=== PATIENT | female | born 1950 | race Caucasian/White ===

== ENCOUNTER 2017-10-21 09:54 | Day surgery (SDC) | payer MEDICARE, MEDICAID ==
[~2017-10-21] VITALS: Ht 167.6 cm; Wt 129.1 kg
--- NOTE | ~2017-10-21 | OP ---
PATIENT NAME: OLGA ROBINS MEDICAL RECORD: [id number] :50 LOCATION:D[facility] ADMISSION DATE: SURGEON: JESSE BOSTON DO DATE OF OPERATION: 10/21/2017 PROCEDURE: Colonoscopy with polypectomy and random biopsies. INDICATION FOR PROCEDURE: Family history positive for cancer of the GI tract including her aunt, history of colon polyps, altered bowel function, hematochezia. Her last colonoscopy was on 08/19/2014. SCOPE: Olympus video pediatric colonoscope. MEDICATIONS: Propofol 650 mg IV per anesthesia. WITHDRAWAL TIME: 13 minutes. ESTIMATED BLOOD LOSS: Minimal. COMPLICATIONS: None. FINDINGS: Informed consent was given. The patient was made comfortable with the above medication. After reaching an adequate level of sedation by slow IV push, the patient was placed on her left side. A digital rectal examination was performed and was normal. The endoscope was then advanced under direct visualization through the rectum to the cecum with visualization of appendiceal orifice and ileocecal valve. The scope was slowly withdrawn and mucosa was carefully examined. The prep quality was good. There was a single polyp located in the ascending colon, which was benign appearing and sessile. It measured approximately 5 mm in diameter and was removed using a hot forceps in one piece and completely retrieved. There were 2 polyps located in the descending colon, which were benign appearing, sessile, and ranged in size from 4 mm to 7 mm. One of the polyps had some excessive bleeding after polypectomy with hot forceps and that was not stopping completely, so a single endoclip was placed for hemostasis successfully. Both of those polyps were removed with hot forceps. Retroflexion was performed in the rectum with visualization of grade I internal hemorrhoids without bleeding. The endoscope was then withdrawn from the patient. The patient tolerated the procedure well and there were no complications. IMPRESSION: 1. Three polyps as described above, removed using hot forceps. 2. Otherwise, normal colonoscopy. Random biopsies were obtained during the colonoscopy to submit for histology and to rule out microscopic colitis. PLAN AND RECOMMENDATIONS: 1. Discharge home when recovery parameters are met. 2. Followup biopsy specimen results. 3. Recall colonoscopy in 3-5 years. 4. Monitor for further bleeding. It is possible that the large polyp that was bleeding after removal might be the source of hematochezia and this has been endoclipped. If there is continued bleeding and it is felt to be hemorrhoidal, we can consider a surgical referral. 5. Followup biopsy specimen results and treat if indicated for microscopic colitis. OPERATIVE REPORT [id number] OLGA ROBINS ALAN TRANSINT:[id number] Voice Confirmation ID: [id number] DOCUMENT ID: [id number] JESSE BOSTON DO at 1524 CC: [id number] DICTATION DATE: 10/21/17 1310 STITCH RUBBER: 10/21/17 1411 [facility] 10/21/17 [id number] [place] [address]
[~2017-10-21 09:54] MED LIST: ALENDRONATE SOD70 MG PO; ATENOLOL25 MG; BACLOFEN10 MG PO; BENTYL 20 MG TA20 MG PO; CALCIUM 600+D T1 TA1 PO; CARAFATE1 G PO; CYCLOBENZAPRINE10 MG PO; CYMBALTA60 MG PO; DEXILANT60 MG PO; DICYCLOMINE PO; ELIQUIS2.5 MG PO; ELIQUIS5 MG PO; FERROUS SULFAT325 MG PO; FLEXERIL10 MG PO; HYDROCODON-ACE1 EAC7; IPRAT-ALBUT 0.5-3 ML UPD; K-TAB10 MEQ PO; LEVOTHROID150 MCG PO; LIPITOR20 MG; LIPITOR20 MG PO; NORCO 5/325 TAB1 TA1 PO; PERCOCET 10/3251 TA1 PO; PRISTIQ50 MG PO; REXULTI PO; REXULTI1 MG PO; TENORMIN25 MG PO; TOPAMAX100 MG PO; TRAZODONE HCL150 MG PO; ULTRAM50 MG PO; XANAX XR0.5 MG; XANAX0.25 MG; ZITHROMAX250 MG PO; ZOCOR10 MG PO
[2017-10-21 10:39] VITALS: BP 122/65; Ht 167.6 cm; Wt 129.1 kg
[2017-10-21 11:16] LABS: BASOPHILS 0.3 % (0-2); EOSINOPHILS 1.8 % (0-7); HEMATOCRIT 38.6 % (36.0-48.0); HEMOGLOBIN 12.5 g/dL (12-16); IMMATURE GRANULOCYTES 0.1 % (0-5); LYMPHOCYTES 25.5 % (15-50); MCH 29.6 pg (26.0-34.0); MCHC 32.4 g/dL (31.0-37.0); MCV 91.3 fL (80.0-100.0); MEAN PLATELET VOLUME 10.5 fL (7.4-10.4); MONOCYTES 5.5 % (2-11); NEUTROPHILS 66.8 % (40-80); PLATELET COUNT 226 10x3/uL (130-400); RBC 4.23 10x6/uL (4.00-5.40); RDW 13.2 % (11.5-14.5); WBC 7.8 10x3/uL (4.8-10.8)
[2017-10-21 11:22] LABS: ANION GAP 14.4 mmol/L (8-16); CALCIUM 8.3 mg/dL (8.5-10.1); CARBON DIOXIDE 23.7 mmol/L (21.0-32.0); CREATININE - SERUM 0.9 mg/dL (0.6-1.3); POTASSIUM - SERUM 4.1 mmol/L (3.5-5.1)
== END 2017-10-21 14:18 | disposition home or self-care (01) ==
LOC: D.OPS 09:54
PROVIDERS: Anesthesiology
DX: D12.2 Benign neoplasm of ascending colon (principal); D12.4 Benign neoplasm of descending colon; K92.1 Melena; I10 Essential (primary) hypertension; E03.9 Hypothyroidism, unspecified; G47.30 Sleep apnea, unspecified; K44.9 Diaphragmatic hernia without obstruction or gangrene; K21.9 Gastro-esophageal reflux disease without esophagitis; Z01.812 Encounter for preprocedural laboratory examination

== ENCOUNTER → 2017-12-04 11:42 | Outpatient (CLI) | payer MEDICARE, MEDICAID ==
[2017-10-21 10:39] VITALS: BMI 45.9
== END | disposition home or self-care (01) ==
LOC: D.MAMMO 09:00
DX: Z12.31 Encounter for screening mammogram for malignant neoplasm of breast (principal)

== ENCOUNTER → 2018-01-29 12:50 | Outpatient (CLI) | payer MEDICARE, MEDICAID ==
[2017-10-21 10:39] VITALS: BMI 45.9
[~2018-01-29 12:50] MED LIST changes: +DESERYL100 MG PO; -HYDROCODON-ACE1 EAC7; +HYDROCODON-ACE1 EAC7 PO; +HYDROCODONE-APA1 TAB PO; -TRAZODONE HCL150 MG PO; +VITAMIN B-1000 MCG/M IM; +VITAMIN D31000 UNIT PO; -XANAX0.25 MG; +XANAX1 MG PO
== END | disposition home or self-care (01) ==
LOC: D.LABREF 12:50
DX: M19.90 Unspecified osteoarthritis, unspecified site (principal); Z11.8 Encounter for screening for other infectious and parasitic diseases

== ENCOUNTER 2018-02-19 10:00 | Inpatient (IN) | payer MEDICARE, MEDICAID ==
[~2018-02-19] VITALS: Ht 167.6 cm; Wt 126.6 kg
--- NOTE | ~2018-02-19 | OP ---
PATIENT NAME: OLGA ROBINS MEDICAL RECORD: [id number] :50 LOCATION:[id number] ADMISSION DATE:02/24/18 SURGEON: JULIENNE ENAMORADO MD DATE OF OPERATION: 02/24/2018 PREOPERATIVE DIAGNOSIS: Degenerative arthritis, left knee. POSTOPERATIVE DIAGNOSIS: Degenerative arthritis, left knee. PROCEDURE: Left total knee arthroplasty. SURGEON: Julienne Enamorado MD ANESTHESIA: General. INTRAOPERATIVE COMPLICATIONS: None. SUMMARY OF PATHOLOGIC FINDINGS: The patient had extensive tricompartmental osteoarthritis consistent with preoperative diagnosis. IMPLANTS USED: Hay Triathlon total knee arthroplasty - press-fit, size 4 distal femur, size 4 tibial baseplate, size 9 polyethylene insert, size 31 x 9 press-fit patella. OPERATIVE SUMMARY IN DETAIL: After obtaining the appropriate preoperative orthopedic surgery consent as well as anesthetic consultation, evaluation and clearance, the patient was brought to the operating room and placed on the operating table in supine position. After general laryngeal mask administered, tourniquet was placed in the proximal aspect of left lower extremity. Left lower extremity was then prepped and draped in routine sterile fashion. The leg was elevated and exsanguinated, tourniquet was inflated to 350 mmHg. Routine midline incision was taken down for paramedian arthrotomy. Patella was everted, distal femur was exposed. Soft tissue excision was done in the usual fashion. Distal intramedullary guide hole was created for distal intramedullary guided cut. Distal femoral cuts were made. This was followed by complete exposure of the proximal tibia. Intramedullary guide hole was again created. Proximal tibia was cut. Measurements were taken. Final chamfer cuts were made on the distal femur. Trials corresponding to the above final components were put into place, taken through range of motion and found to be stable in all planes. Final distal femoral and proximal tibial preparation was then followed by excision of the arthritic surface of the patella. Final patellar preparations made. At this point, the knee was irrigated in pulsatile lavage fashion. Final components were put into place with excellent fit and position. Slight patellar tracking laterally was noted. A lateral release was performed. This was followed by closure of the paramedian arthrotomy with #2 Ethibond, #1 Vicryl, 2-0 Vicryl, and skin nicho. Sterile dressings were applied. The patient was awakened and taken to recovery room in stable condition. All final needle and sponge counts were correct. OPERATIVE REPORT [id number] OLGA ROBINS TRANSINT:[id number] Voice Confirmation ID: [id number] DOCUMENT ID: [id number] FEI PEREZ, JULIENNE JOSE at 1916 CC: [id number] DICTATION DATE: 02/24/18820 INSURANCE SALES ASSISTANT: 02/24/18 1114 ADM IN [facility] [address] [place] [address]
[~2018-02-19 10:00] MED LIST changes: -HYDROCODONE-APA1 TAB PO; -VITAMIN B-1000 MCG/M IM; -VITAMIN D31000 UNIT PO
[2018-02-19] MEDS ORDERED: VITAMIN D31000 UNIT PO (10:51)
[2018-02-19] MEDS ORDERED: VITAMIN B-1000 MCG/M IM (10:52)
[2018-02-19 11:41] LABS: BASOPHILS 0.2 % (0-2); EOSINOPHILS 2.5 % (0-7); HEMATOCRIT 39.3 % (36.0-48.0); HEMOGLOBIN 12.8 g/dL (12-16); IMMATURE GRANULOCYTES 0.2 % (0-5); LYMPHOCYTES 30.2 % (15-50); MCH 29.8 pg (26.0-34.0); MCHC 32.6 g/dL (31.0-37.0); MCV 91.6 fL (80.0-100.0); MEAN PLATELET VOLUME 9.9 fL (7.4-10.4); MONOCYTES 7.6 % (2-11); NEUTROPHILS 59.3 % (40-80); PLATELET COUNT 246 10x3/uL (130-400); RBC 4.29 10x6/uL (4.00-5.40); RDW 13.4 % (11.5-14.5); WBC 8.3 10x3/uL (4.8-10.8)
[2018-02-19 12:11] LABS: ANION GAP 12.4 mmol/L (8-16); CALCIUM 8.2 mg/dL (8.5-10.1); CARBON DIOXIDE 26.6 mmol/L (21.0-32.0); CREATININE - SERUM 1.2 mg/dL (0.6-1.3)
[2018-02-19 12:41] LABS: APPEARANCE CLEAR (CLEAR); BILIRUBIN NEGATIVE (NEGATIVE); COLOR YELLOW (YELLOW); GLUCOSE NEGATIVE (NEGATIVE); KETONE NEGATIVE (NEGATIVE); NITRITE NEGATIVE (NEGATIVE); PROTEIN NEGATIVE (NEGATIVE); SPECIFIC GRAVITY 1.015 (1.005-1.020); UROBILINOGEN NORMAL (NORMAL)
[2018-02-19 12:57] LABS: INR 1.04 (0.85-1.17); PROTIME 13.2 SECONDS (11.6-15.0)
[2018-02-24] VITALS (14 sets, daily range): BP systolic 91–121; BP diastolic 55–70; Ht 167.6 cm; Wt 126.6 kg
[2018-02-25 02:59] VITALS: BP 122/68
[2018-02-25 05:16] LABS: HEMATOCRIT 36.8 % (36.0-48.0); MCH 29.5 pg (26.0-34.0); MCHC 32.6 g/dL (31.0-37.0); MCV 90.4 fL (80.0-100.0); MEAN PLATELET VOLUME 11.3 fL (7.4-10.4); RBC 4.07 10x6/uL (4.00-5.40); RDW 13.2 % (11.5-14.5); WBC 11.7 10x3/uL (4.8-10.8)
[2018-02-25 08:38] VITALS: BP 129/63
[2018-02-25 11:54] VITALS: BP 120/66
[2018-02-25 17:38] VITALS: BP 141/66
[2018-02-25 20:00] VITALS: BP 134/59
[2018-02-26] VITALS: BP 141/58
[2018-02-26 04:00] VITALS: BP 141/66
[2018-02-26 05:21] LABS: HEMATOCRIT 34.1 % (36.0-48.0); HEMOGLOBIN 11.3 g/dL (12-16); MCH 29.7 pg (26.0-34.0); MCHC 33.1 g/dL (31.0-37.0); MCV 89.7 fL (80.0-100.0); MEAN PLATELET VOLUME 10.5 fL (7.4-10.4); RBC 3.8 10x6/uL (4.00-5.40); RDW 13.3 % (11.5-14.5); WBC 10.7 10x3/uL (4.8-10.8)
[2018-02-26 09:33] VITALS: BP 141/70
[2018-02-26 11:30] VITALS: BP 121/70
[2018-02-26 20:00] VITALS: BP 136/60
[2018-02-27 04:00] VITALS: BP 123/60
[2018-02-27] MEDS ORDERED: HYDROCODONE-APA1 TAB PO (08:12)
[2018-02-27] MEDS ORDERED: ELIQUIS2.5 MG PO (08:12)
[2018-02-27 08:48] VITALS: BP 131/67
== END 2018-02-27 11:45 | DRG 470 ==
LOC: D.SDCHOLD 10:00 → D.MS 02-24 05:10 → D.SDCHOLD 02-24 07:30 → D.MS 02-24 09:22 → D.SDCHOLD 02-24 10:00 → D.MS 02-27 11:45
PROVIDERS: Orthopaedic Surgery
PROC: 0SRD0JA Replacement of Left Knee Joint with Synthetic Substitute, Uncemented, Open Approach (ICD-10-PCS; principal; 2018-02-24 07:30)
DX: M17.12 Unilateral primary osteoarthritis, left knee (principal); Z68.42 Body mass index [BMI] 45.0-49.9, adult; G51.0 Bell's palsy; G62.9 Polyneuropathy, unspecified; E66.01 Morbid (severe) obesity due to excess calories

== ENCOUNTER → 2018-11-03 08:40 | Outpatient (CLI) | payer MEDICARE, MEDICAID ==
[2018-02-24 12:18] VITALS: BMI 45.0
[~2018-11-03 08:40] MED LIST changes: +HYDROCODONE-APA1 TAB PO; +VITAMIN B-1000 MCG/M IM; +VITAMIN D31000 UNIT PO
== END | disposition home or self-care (01) ==
LOC: D.HCCARDIO 08:40
PROVIDERS: ATTEND Internal Medicine Cardiovascular Disease
DX: I20.9 Angina pectoris, unspecified (principal)

== ENCOUNTER → 2018-11-04 08:13 | Outpatient (CLI) | payer MEDICARE, MEDICAID ==
[2018-02-24 12:18] VITALS: BMI 45.0
== END | disposition home or self-care (01) ==
LOC: D.HCCARDIO 08:13
PROVIDERS: ATTEND Internal Medicine Cardiovascular Disease
DX: I20.9 Angina pectoris, unspecified (principal); E66.9 Obesity, unspecified

== ENCOUNTER 2018-11-14 06:56 | Outpatient (CLI) | payer MEDICARE, MEDICAID ==
[~2018-11-14] VITALS: Ht 167.6 cm; Wt 122.7 kg
--- NOTE | ~2018-11-14 | HEMODYNAMI ---
PATIENT:OLGA ROBINS MEDICAL RECORD: [id number] : 50 LOCATION:[facility] ADMISSION DATE: 11/14/18 Generatedon:11/14/201810:21 Patient name: OLGA ROBINS Patient #: [id number] SSN: DO B: 1950 Date of study: 11/14/2018 Page: Of Hemodynamic Procedure Report Patient Data Patient Demographics Procedure consent was obtained First Name: OLGA Gender: Female Last Name: JULIENNE : 1950 [facility] Initial: ALAN Age: 68 year(s) Patient #: [id number] Race: Unknown Additional ID: [id number] Contact details [address]: [address] [place] [address] State: [place] City: [place] Zip code: [address] Past Medical History Allergies Allergen Reaction Date Comments Reported Other allergy 11/14/2018 ASA, NSAIDS, PCN, SULFA, SPEARMINT Admission Admission Data Admission Date: 11/14/2018 Admission Time: 6:56 Height (in.): 66 BSA: 2.27 (m2) Height (cm.): 167.64 BMI: 43.58 (kg/m2) Weight (lbs.): 270 Weight (kg.): 122.47 Lab Results Lab Result Date: 11/14/2018 Lab Result Time: 0:00 Biochemistry Name Units Result Min Max BUN mg/dl 16 --(---*)-- 7 18 Creatinine mg/dl 1 --(--*-)-- 0.6 1.3 CBC Name Units Result Min Max Hematocrit % 40.4 -*(----)-- 42 54 Hemoglobin g/dl 13.2 -*(----)-- 13.5 17.5 Procedure Procedure Types Cath Procedure Diagnostic Procedure C [facility] w/Coronaries Sedation Charges Moderate Sedation up to 15 minutes PCI Procedure Coronary Stent Coronary Stent Initial Procedure Description Procedure Date Procedure Date: 11/14/2018 Procedure Start Time: 9:43 Procedure End Time: 10:14 Procedure Staff Name Function Eveline Zambrano RT Scrmaddy Osorio RN Nurse Pamela Ray RT Monitor Villa Watson MD Performing Physician Procedure Data Cath Procedure Fluoroscopy Diagnostic fluoroscopy Total fluoroscopy Time: 5.8 time: 5.8 min min Diagnostic fluoroscopy Total fluoroscopy dose: dose: 1437 mGy 1437 mGy Contrast Material Contrast Material Type Amount (ml) Isovue 300 104 Entry Location Entry Primary Successful Side Size Upsize Upsize Entry Closure Succes sful Closure Location (Fr) 1 (Fr) 2 (Fr) Remarks Device Remarks Femoral Right 5 Fr 6 Fr Exoseal artery Short Estimated blood loss: 5 ml Diagnostic catheters Device Type Used For End Catheter Placement MULTIPACK JL 4.0 5Fr Left Coronary catheter Angiography MULTIPACK 3DRC 5Fr Right Coronary catheter Angiography MULTIPACK Pigtail 5 Fr LV Angiography catheter Procedure Complications No complications Procedure Medications Medication Administration Route Dosage Oxygen etCO2 Nasal cannula 2 l/min Heparin Flush Bag added to field 2 bags (1000units/500ml NS) Lidocaine 2% added to field 20 Fentanyl I.V. 50 mcg Versed I.V. 1 mg 0.9% NaCl I.V. 100 ml/hr Fentanyl I.V. 50 mcg Versed I.V. 1 mg Heparin Bolus I.V. 09014 units Fentanyl I.V. 50 mcg Nitroglycerin IC/IA I.C. 100 mcg Fentanyl I.V. 50 mcg Fentanyl I.V. 50 mcg Plavix P.O. 600 mg Hemodynamics Rest BSA: 2.27 (m2) HGB: 13.2 (g/dl) O2 Consumption: Estimated: 203.94 (ml/min) O2 Co nsumption indexed: Estimated:89.84 (ml/min/m) Heart Rate: 63 (bpm) Pressure Samples Time Site Value (mmHg) Purpose Heart Use Rate(bpm) 9:51 LV 114/0,17 Snapshot 70 Gradients Valve Time Site Site Mean SEP/DFP Peak To Heart Use 1 2 (mmHg) (sec/min) Peak Rate (mmHg) (bpm) Aortic 9:51 LV AO 69 Snapshots Pre Cath Intra NCS Post Cath Vital Signs Time Heart Resp SPO2 etCO2 NIBP Rhythm Pain Sedation Rate (ipm) (%) (mmHg) (mmHg) Status Level (bpm) 9:32:57 63 16 99 36.7 119/47(85) NSR 0 (11) 10(A) , No pain 9:34:46 60 16 100 30.7 115/63(95) NSR 0 (11) 10(A) , No pain 9:38:49 60 17 97 51.6 112/61(82) NSR 0 (11) 10(A) , No pain 9:42:57 63 16 94 50.1 97/56(73) NSR 0 (11) 10(A) , No pain 9:46:59 62 17 98 46.4 110/66(80) NSR 0 (11) 9(A) , No pain 9:51:07 70 17 99 37.4 112/64(81) NSR 0 (11) 9(A) , No pain 9:55:12 71 17 98 50.9 102/65(87) NSR 0 (11) 9(A) , No pain 9:59:18 81 16 98 39.7 98/60(76) NSR 0 (11) 9(A) , No pain 10:03:22 78 16 98 47.9 106/60(76) NSR 0 (11) 9(A) , No pain 10:07:26 79 16 96 53.1 112/66(82) NSR 0 (11) 9(A) , No pain 10:11:34 78 16 98 53.9 110/62(92) NSR 0 (11) 9(A) , No pain 10:19:06 70 17 98 48.6 120/71(97) NSR 0 (11) 10(A) , No pain Medications Time Medication Route Dose Verified Delivered Reason Notes Effectiveness by by 9:32:57 Oxygen etCO2 2 Villa Yordy Per physician Nasal l/min Walter Osorio RN cannula 9:33:29 Heparin Flush added 2 Villa Yordy used for Bag to bags Walter Osorio RN procedure (1000units/500ml field NS) 9:33:46 Lidocaine 2% added 20ml Villa Yordy for local to vial Walter Osorio RN anesthetic field 9:44:01 Fentanyl I.V. 50 Villa Yordy for sedation mcg Walter Osorio RN 9:44:08 Versed I.V. 1 mg Villa Yordy for sedation Walter Osorio RN 9:44:36 0.9% NaCl I.V. 100 Villa Yordy Per physician ml/hr Walter Osorio RN 9:48:32 Fentanyl I.V. 50 Villa Yordy for sedation mcg Walter Osorio RN 9:48:36 Versed I.V. 1 mg Villa Yordy for sedation Walter Osorio RN 9:57:34 Heparin Bolus I.V. 76247 Villa Yordy for units Walter Osorio RN anticoagulation 9:57:50 Fentanyl I.V. 50 Villa Yordy for sedation mcg aWlter Osorio RN 9:58:32 Nitroglycerin I.C. 100 Villa Villa for IC/IA mcg Walter Watson MD vasodilation 10:03:16 Fentanyl I.V. 50 Villa Yordy for sedation mcg Walter Osorio RN 10:07:20 Fentanyl I.V. 50 Villa Yordy for sedation mcg Walter Osorio RN 10:20:03 Plavix P.O. 600 Villa Yordy for mg Walter Osorio RN antiplatelet therapy Procedure Log Time Note 8:56:06 Signed procedure consent form obtained from patient. 8:56:10 Diagnostic Cath status Elective 9:00:13 Time tracking: Regular hours (M-F 7:00 - 5:00) 9:00:18 Plan of Care:Hemodynamics will remain stable., Cardiac rhythm will remain stable., Comfort level will be maintained., Respiratory function will remain adequate., Patient/ family verbilizes understanding of procedure., Procedure tolerated without complication., Recovers from procedure without complications.. 9:06:23 Patient allergic to Other allergyASA, NSAIDS, PCN, SULFA, SPEARMINT 9:08:18 Yordy Osorio RN sent for patient. Start room use. 9:09:46 Patient Height : 66 inches 9:09:50 Patient Weight : 270 lbs 9:11:05 Lab Result : BUN 16 mg/dl 9:11:05 Lab Result : Creatinine 1 mg/dl 9:11:05 Lab Result : Hemoglobin 13.2 g/dl 9:11:05 Lab Result : Hematocrit 40.4 % 9:23:19 Patient received from Pre/Post Procedure Room to CCL 2 Alert and oriented. Tansferred to table in Supine position. 9:23:20 Warm blankets applied, and ritu hugger turned on for patient comfort. 9:23:21 Correct patient and procedure confirmed by team. 9:23:21 ECG and BP/O2 sat monitors applied to patient. 9:32:57 Oxygen 2 l/min etCO2 Nasal cannula was administered by Yordy Osorio RN; Per physician; 9:33:29 Heparin Flush Bag (1000units/500ml NS) 2 bags added to field was administered by Yordy Osorio RN; used for procedure; 9:33:44 Vital chart was started 9:33:45 Baseline sample Acquired. 9:33:46 Lidocaine 2% 20ml vial added to field was administered by Yordy Osorio RN; for local anesthetic; 9:33:49 Rhythm: sinus rhythm 9:33:50 Full Disclosure recording started 9:33:55 H&P Date Dictated: 11/14/2018 Within 30 days and on chart., H&P Addendum completed by physician on day of procedure. (MUST COMPLETE FOR ALL OUTPATIENTS). 9:33:56 Pre-procedure instructions explained to patient. 9:33:57 Pre-op teaching completed and patient verbalized understanding. 9:33:59 Family in patients room. 9:34:00 Patient NPO since Midnight. 9:34:03 Is the patient allergic to Iodine/contrast media? No. 9:34:04 Was the patient premedicated? No 9:34:06 Is patient on blood thinner?No 9:34:07 Patient diabetic? Yes. 9:34:08 If diabetic: On Metformin? No 9:34:11 Previous problem with sedation/anesthesia? No ? 9:34:13 Snore? Yes 9:34:13 Sleep apnea? No 9:34:15 Deviated septum? No 9:34:23 Opens mouth fully? Yes 9:34:24 Sticks out tongue? Yes 9:34:29 Airway obstruction? Yes COPD 9:34:49 Dentures? Yes IN TIGHT 9:34:55 Pre procedure: right dorsailis pedis pulse 2+ Normal; easily identifiable; not easily obliterated 9:34:56 Pre procedure: left dorsailis pedis pulse 2+ Normal; easily identifiable; not easily obliterated 9:34:58 Patient pain scale 0/10 ?. 9:35:04 IV patent on arrival in left forearm with 0.9% NaCl at O. 9:35:06 Lab results completed and on chart. 9:35:12 Right groin area was prepped with chlora-prep and draped in sterile fashion 9:35:13 Alarms reviewed by R. N. 9:35:14 Sharps counted by scrub and verified by R.N. 9:35:15 Physician arrived 9:35:16 --------ALL STOP TIME OUT------ 9:35:16 Final Timeout: patient, procedure, and site verified with staff and physician. All members of the team are in agreement. 9:35:18 Right groin site verified by team. 9:35:22 Maximum allowable Isovue 300 dose 300ml. Physician notified. (300ml for normal creatinines. For patients with creatinine of 1.7 or higher multiply weight(kg) x 5 divided by creatinine.) 9:35:25 Fire Safety Assessment: A--An alcohol-based skin anteseptic being used preoperatively., C--Open oxygen or nitrous oxide is being used., D--An ESU, laser, or fiber-optic light is being used. 9:35:49 Sedation plan: IV Moderate Sedation Medication:Versed, Fentanyl 9:35:54 Physical assessment completed. ASA score P 2 - A patient with mild systemic disease as per Villa Watson MD. 9:35:59 Use device set Femoral Dx 9:36:00 ACIST Syringe (45401) opened to sterile field. 9:36:00 Bag Decanter (2002S) opened to sterile field. 9:36:01 Medline Cath Pack ([id number]) opened to sterile field. 9:36:01 DIAGNOSTIC WIRE .035 260cm J wire (120539) opened to sterile field. 9:36:02 ACIST Hand Control (94955) opened to sterile field. 9:36:03 ACIST Manifold (26242) opened to sterile field. 9:36:03 DIAGNOSTIC Multipack 5Fr catheter set (SE0804) opened to sterile field. 9:36:03 Tegaderm 4 x 4 (1626W) opened to sterile field. 9:36:05 SHEATH 5FR [place] (KBM255) opened to sterile field. 9:43:22 Procedure started. 9:43:26 Local anesthetic to right femoral artery with Lidocaine 2% by Villa Watson MD.INITIAL ACCESS ONLY 9:44:01 Fentanyl 50 mcg I.V. was administered by Yordy Osorio RN; for sedation; 9:44:08 Versed 1 mg I.V. was administered by Yordy Osorio RN; for sedation; 9:44:36 0.9% NaCl 100 ml/hr I.V. was administered by Yordy Osorio RN; Per physician; 9:45:59 A 5 Fr sheath was inserted into the Right Femoral artery 9:46:30 A MULTIPACK JL 4.0 5Fr catheter was advanced over the wire and used for Left Coronary Angiography. 9:47:04 LCA angiography performed. 9:47:09 Injector settings: Ml/sec: 3, Volume: 6, 9:48:19 Catheter removed. 9:48:26 A MULTIPACK 3DRC 5Fr catheter was advanced over the wire and used for Right Coronary Angiography. 9:48:32 Fentanyl 50 mcg I.V. was administered by Yordy Osorio RN; for sedation; 9:48:36 Versed 1 mg I.V. was administered by Yordy Osorio RN; for sedation; 9:49:50 RCA angiography performed. 9:49:53 Injector settings: Ml/sec: 3, Volume: 6, 9:50:14 Catheter removed. 9:50:22 A MULTIPACK Pigtail 5 Fr catheter was advanced over the wire and used for LV Angiography. 9:50:52 SHEATH 6FR [place] (PVG478) opened to sterile field. 9:50:53 INFLATOR Merit BasixCompak (GT7758) opened to sterile field. 9:50:53 TUBING High Pressure Extension Tubing (Watson) ([id number]) opened to sterile field. 9:50:53 GUIDE 6FR XBLAD 3.5 catheter (10381483) opened to sterile field. 9:50:54 BMW 300cm [place] 2 J wire (6334301W) opened to sterile field. 9:51:22 LV hemodynamics recorded. 9:51:23 LV gram done using CHÁVEZ 9:51:25 Injector settings: Ml/sec: 5, Volume: 15, 9:51:38 EF : 55 % 9:51:49 Catheter removed. 9:51:50 Proceeding to intervention. 9:51:57 Sheath upsized to a 6 Fr Short. 9:53:57 6 Fr XBLAD 3.5 guide catheter was inserted over the wire 9:56:43 BMW wire advanced. 9:57:34 Heparin Bolus 82016 units I.V. was administered by Yordy Osorio RN; for anticoagulation; 9:57:50 Fentanyl 50 mcg I.V. was administered by Yordy Osorio RN; for sedation; 9:58:32 Nitroglycerin IC/IA 100 mcg I.C. was administered by Villa Watson MD; for vasodilation; 9:58:51 Wire advanced across lesion. 10:03:16 Fentanyl 50 mcg I.V. was administered by Yordy Osorio RN; for sedation; 10:06:54 Place stent Inflation Number: 1 A GINNY OTW 3.0 x 26 stent ([id number]) was prepped and advanced across the Mid LAD. The stent was deployed at 12 MICHAEL for 0:10 (min:sec). 10:07:01 Stent catheter was removed intact over wire. 10:07:20 Fentanyl 50 mcg I.V. was administered by Yordy Osorio RN; for sedation; 10:11:25 Place stent Inflation Number: 1 A GINNY OTW 3.5 x 15 stent ([id number]) was prepped and advanced across the Prox LAD. The stent was deployed at 12 MICHAEL for 0:10 (min:sec). 10:11:54 Stent catheter was removed intact over wire. 10:12:12 Wire removed. 10:12:12 Guide catheter removed. 10:12:20 EXOSEAL 6Fr (EX600) opened to sterile field. 10:12:30 Sheath removed intact; hemostasis achieved with Exoseal to the Right Femoral artery. 10:13:06 Procedure ended.(Physican Out) 10:13:23 Fluoroscopy time 05.80 minutes. 10:13:27 Fluoroscopy dose: 1437 mGy 10:13:27 Flurop Dose total: 1437 10:13:39 Contrast amount:Isovue 300 104ml. 10:13:40 Sharps counted by scrub and verified by R.N. 10:13:43 Insertion/operative site no bleeding no hematoma. 10:13:58 Post-op/insertion site Right Femoral artery dressed using a 4 x 4 and Tegaderm. 10:14:01 Post procedure rhythm: unchanged. 10:14:03 Estimated blood loss: 5 ml 10:14:05 Post procedure instruction explained to patient.Patient verbalizes understanding. 10:14:05 Patient needs reinforcement of post procedure teaching. 10:14:14 Procedure type changed to Cath procedure, Diagnostic procedure, LHC, LHC w/Coronaries, Sedation Charges, Moderate Sedation up to 15 minutes, PCI procedure, Coronary Stent, Coronary Stent Initial 10:14:15 Procedure and supply charges have been captured, reviewed, submitted and are correct. 10:14:19 Procedure Complication : No complications 10:14:21 Vital chart was stopped 10:14:22 See physician's report for complete and final results. 10:14:24 Report given to Pre/Post Procedure Room. 10:14:27 Patient transfered to Pre/Post Procedure Room with Stretcher. 10:14:29 Procedure ended. 10:14:29 Full Disclosure recording stopped 10:18:49 ACC-PCI Only Patient was given prescriptions, or instructed by Villa Watson MD to start/continue the following medications upon discharge: Plavix 10:18:50 End room use (Document Last) 10:20:03 Plavix 600 mg P.O. was administered by Yordy Osorio RN; for antiplatelet therapy; Intervention Summary Intervention Notes Time ActionType Lesion and Equipment Action# Pressure Duration Attributes Used 10:06:54 Place stent Mid LAD GINNY OTW 3.0 1 12 00:10 x 26 stent ([id number]) 10:11:25 Place stent Prox LAD GINNY OTW 3.5 1 12 00:10 x 15 stent ([id number]) Device Usage Item Name Manufacture Quantity Catalog Hospital Part Current [facility] Lot# / Number Charge Number Stock Stock Serial# Code ACIST Syringe Acist 1 50704 085787 489526 772053 20 (22331) Medical Systems Inc Bag Decanter Microtek 1 509919 27147 553754 5 () Medical Inc. Medline Cath Medline 1 [id number] 662491 81170 314740 5 Pack ([id number]) DIAGNOSTIC St Zander 1 846230 780056 068970 698587 30 WIRE .035 260cm J wire (187206) ACIST Hand Acist 1 72480 550067 828937 815014 5 Control Medical (23355) Systems Inc ACIST Acist 1 50793 630106 061760 716445 5 Manifold Medical (40532) Systems Inc DIAGNOSTIC Cardinal 1 VI4206 510362 47004 647983 30 Multipack 5Fr Health catheter set (XT0889) Tegaderm 4 x 3M 1 1626W 198424 156254 673758 5 4 (1626W) SHEATH 5FR Terumo 1 YOY277 526887 165970 647735 5 [place] (RLA403) MULTIPACK JL Cardinal 1 256206 5 4.0 5Fr Health catheter MULTIPACK Cardinal 1 705450 5 3DRC 5Fr Health catheter MULTIPACK Cardinal 1 186310 5 Pigtail 5 Fr Health catheter SHEATH 6FR Terumo 1 VRU449 460730 176714 959161 40 [place] (JDN393) INFLATOR Merit 1 SM3116 481139 627665 943310 15 Merit Medical BasixCompak (NY7473) TUBING High Merit 1 NA1954Q 023147 37464 193564 10 Pressure Medical Extension Tubing (Watson) (EJ1814I) GUIDE 6FR Cardinal 1 14861336 945420 271593 507141 10 XBLAD 3.5 Health catheter (39044026) BMW 300cm Jarvis 1 [id number] 285927 204607 070705 5 [place] 2 J Vascular wire (8049111V) GINNY OTW 3.0 Medtronic 1 [id number] 719620 8817561 625680 5 [id number] x 26 stent ([id number]) GINNY OTW 3.5 Medtronic 1 [id number] 382144 1129284 188091 5 [id number] x 15 stent ([id number]) EXOSEAL 6Fr Cardinal 1 EX600 531420 786107 459804 10 (EX600) Health Signature Audit Catarina Stage Time Signature Unsigned Intra-Procedure 11/14/2018 Pamela Ray 10:21:31 AM RT(R) Signatures Monitor : Pamela Ray RT Signature : Date : Time : [facility] [address] [place] [id number]
[2018-11-14] MEDS ORDERED: XANAX0.25 MG PO (07:54)
[2018-11-14] MEDS ORDERED: PRISTIQ100 MG PO (07:56)
[2018-11-14] MEDS ORDERED: TRAZODONE HCL150 MG PO (07:58)
[2018-11-14 08:05] VITALS: BP 109/59; Ht 167.6 cm; Wt 122.7 kg
[2018-11-14 08:47] LABS: BASOPHILS 0.4 % (0-2); EOSINOPHILS 2.6 % (0-7); HEMATOCRIT 40.4 % (36.0-48.0); HEMOGLOBIN 13.2 g/dL (12-16); IMMATURE GRANULOCYTES 0.4 % (0-5); LYMPHOCYTES 26.2 % (15-50); MCH 29.5 pg (26.0-34.0); MCHC 32.7 g/dL (31.0-37.0); MCV 90.2 fL (80.0-100.0); MEAN PLATELET VOLUME 10.4 fL (7.4-10.4); MONOCYTES 5.3 % (2-11); NEUTROPHILS 65.1 % (40-80); PLATELET COUNT 236 10x3/uL (130-400); RBC 4.48 10x6/uL (4.00-5.40); RDW 13.6 % (11.5-14.5)
[2018-11-14 08:55] LABS: ANION GAP 12.6 mmol/L (8-16); CALCIUM 8.7 mg/dL (8.5-10.1); CARBON DIOXIDE 27.4 mmol/L (21.0-32.0)
--- NOTE | 2018-11-14 10:28 | NUR ---
PT ARRIVED BY STRETCHER. PLACED ON MONITORS. ASSESSMENT COMPLETED. NO FAMILY AT BEDSIDE. CALL LIGHT PLACED WITHIN REACH.
[2018-11-14] MEDS ORDERED: PLAVIX75 MG PO (10:34)
--- NOTE | 2018-11-14 10:46 | NUR ---
PT C/O INDIGESTION. GAVE HER SIPS OF SPRITE. VSS. RIGHT GROIN DRESSING C/D/I. NO S/S OF HEMATOMA NOTED. CALL LIGHT WITHIN REACH. PT PLACED IN REVERSE TR[place]LENBURG TO HELP WITH REFLUX.
--- NOTE | 2018-11-14 11:15 | NUR ---
PT RESTING COMFORTABLY. VSS. RIGHT GROIN DRESSING C/D/I. NO S/S OF HEMATOMA NOTED. CALL LIGHT WITHIN REACH.
--- NOTE | 2018-11-14 11:45 | NUR ---
RIGHT GROIN DRESSING C/D/I. NO S/S OF HEMATOMA NOTED. CALL LIGHT WITHIN REACH. VSS. RIGHT PEDAL PULSE PALPABLE.
--- NOTE | 2018-11-14 12:13 | NUR ---
PT SLEEPING. EASILY AROUSED FROM SLEEP. RIGHT GROIN DRESSING C/D/I. NO S/S OF HEMATOMA NOTED. RIGHT PEDAL PULSE PALPABLE.
--- NOTE | 2018-11-14 12:46 | NUR ---
PT ON BEDPAN. VOIDED APPROX 500CC OF CLEAR YELLOW URINE. BRENDA-CARE GIVEN. VSS. RIGHT GROIN DRESSING C/D/I. NO S/S OF HEMATOMA NOTED. CALL LIGHT WITHIN REACH.
--- NOTE | 2018-11-14 13:15 | NUR ---
PT'S HEAD OF BED INC TO 30 DEGREES. TOLERATED WELL. RIGHT GROIN DRESSING C/D/I. NO S/S OF HEMATOMA NOTED. PT SET UP WITH SANDWICH TRAY AND DRINK. DENIES NAUSEA. CALL LIGHT WITHIN REACH. VSS.
--- NOTE | 2018-11-14 13:55 | NUR ---
RIGHT AC PIV D/C'D WITH CATH TIP INTACT. PT TOLERATED WELL. PT INSTRUCTED TO GET UP AND DRESSED. RIGHT GROIN DRESSING C/D/I. NO S/S OF HEMATOMA NOTED.
--- NOTE | 2018-11-14 14:04 | NUR ---
PT DRESSED. AMBULATED TO RESTROOM WITHOUT ASSISTANCE. VOIDED WITHOUT DIFFICULTY. STEADY GAIT NOTED.
--- NOTE | 2018-11-14 14:05 | NUR ---
DISCUSSED DISCHARGE INSTRUCTIONS WITH PT AND PT'S FAMILY. THEY VOICED UNDERSTANDING.
--- NOTE | 2018-11-14 14:15 | NUR ---
PT TAKEN OUT TO VEHICLE BY WHEELCHAIR. NO S/S OF DISTRESS NOTED. ALL BELONGINGS AND PAPERWORK IN HAND.
== END 2018-11-14 14:15 | disposition home or self-care (01) ==
LOC: D.CATH 06:56
PROVIDERS: ATTEND Internal Medicine Cardiovascular Disease
DX: I25.119 Atherosclerotic heart disease of native coronary artery with unspecified angina pectoris (principal); Z01.812 Encounter for preprocedural laboratory examination
CPT/HCPCS: C9600; 93458

== ENCOUNTER 2019-02-09 08:00 | Outpatient (CLI) | payer MEDICARE, MEDICAID ==
[2018-11-14 08:05] VITALS: BMI 43.6
[~2019-02-09 08:00] MED LIST changes: +PLAVIX75 MG PO; +PRISTIQ100 MG PO; +TRAZODONE HCL150 MG PO; +XANAX0.25 MG PO
== END 2019-02-09 23:59 | disposition home or self-care (01) ==
LOC: D.MAMMO 08:00
PROVIDERS: ATTEND Family Medicine
DX: Z12.31 Encounter for screening mammogram for malignant neoplasm of breast (principal)

== ENCOUNTER → 2019-12-08 10:30 | Outpatient (CLI) | payer MEDICARE, MEDICAID ==
[2018-11-14 08:05] VITALS: BMI 43.6
== END | disposition home or self-care (01) ==
LOC: D.HCCECHO 10:30
PROVIDERS: ATTEND Internal Medicine Cardiovascular Disease
DX: I10 Essential (primary) hypertension (principal)

== ENCOUNTER → 2019-12-14 | Emergency (ER) | payer MEDICARE, MEDICAID ==
[~2019-12-14] VITALS: Ht 167.6 cm; Wt 129.5 kg
[~2019-12-14] MED LIST changes: +MECLIZINE HCL25 MG PO
[2019-12-14 11:23] VITALS: BP 111/59; Ht 167.6 cm; Wt 129.5 kg
[2019-12-14 11:50] LABS: BILIRUBIN NEGATIVE (NEGATIVE); GLUCOSE NEGATIVE (NEGATIVE); KETONE NEGATIVE (NEGATIVE); NITRITE NEGATIVE (NEGATIVE); SPECIFIC GRAVITY 1.005 (1.005-1.020); UROBILINOGEN NORMAL (NORMAL)
[2019-12-14 11:57] LABS: HEMATOCRIT 39.8 % (36.0-48.0); HEMOGLOBIN 12.9 g/dL (12-16); LYMPHOCYTES 32.8 % (15-50); MCH 29.7 pg (26.0-34.0); MCHC 32.4 g/dL (31.0-37.0); MCV 91.5 fL (80.0-100.0); MEAN PLATELET VOLUME 10.2 fL (7.4-10.4); NEUTROPHILS 56.8 % (40-80); PLATELET COUNT 243 10x3/uL (130-400); RBC 4.35 10x6/uL (4.00-5.40); RDW 12.7 % (11.5-14.5); WBC 8.2 10x3/uL (4.8-10.8)
[2019-12-14 12:00] LABS: APTT 27.5 SECONDS (22.8-39.4)
[2019-12-14 12:05] LABS: CALC OSMOLALITY 283 mosm/kg (275-300); CALCIUM 8.6 mg/dL (8.5-10.1); CARBON DIOXIDE 28.3 mmol/L (21.0-32.0); CHLORIDE - SERUM 107 mmol/L (98-107); CREATININE - SERUM 1.1 mg/dL (0.6-1.3); GLUCOSE 107 mg/dL (74-106); INR 0.98 (0.85-1.17); POTASSIUM - SERUM 4.5 mmol/L (3.5-5.1); SODIUM 142 mmol/L (136-145); UREA NITROGEN 15 mg/dL (7-18); eGFR NON AFRICAN AMERICAN 52 mL/min (90-120)
[2019-12-14 12:22] LABS: ALBUMIN 3.5 g/dL (3.4-5.0); ALKALINE PHOSPHATASE 100 U/L (30-120); ALT (SGPT) 26 U/L (10-68); BILIRUBIN - TOTAL 0.23 mg/dL (0.2-1.3); CKMB 0.6 U/L (0.0-3.6); CREATINE KINASE 44 UL (21-215); MAGNESIUM - SERUM 2.2 mg/dL (1.8-2.4); PROTEIN - SERUM 6.7 g/dL (6.4-8.2); TROPONIN-I < 0.017 ng/mL (0.000-0.060)
== END | disposition home or self-care (01) ==
LOC: D.ER 11:09
PROVIDERS: Family Medicine
DX: R53.1 Weakness (principal); R42 Dizziness and giddiness; E07.9 Disorder of thyroid, unspecified; G62.9 Polyneuropathy, unspecified; K21.9 Gastro-esophageal reflux disease without esophagitis; R07.9 Chest pain, unspecified; R06.02 Shortness of breath

== ENCOUNTER → 2019-12-29 14:07 | Outpatient (CLI) | payer MEDICARE, MEDICAID ==
[2019-12-14 11:23] VITALS: BMI 46.1
== END | disposition home or self-care (01) ==
LOC: D.US 14:07
PROVIDERS: ATTEND Internal Medicine Cardiovascular Disease
DX: Z86.73 Personal history of transient ischemic attack (TIA), and cerebral infarction without residual deficits (principal)

== ENCOUNTER → 2020-01-26 09:13 | Outpatient (CLI) | payer MEDICARE, MEDICAID ==
[2019-12-14 11:23] VITALS: BMI 46.1
== END | disposition home or self-care (01) ==
LOC: D.MRI 09:13
PROVIDERS: ATTEND Nurse Practitioner Family
DX: D32.0 Benign neoplasm of cerebral meninges (principal)

== ENCOUNTER 2020-02-23 08:30 | Outpatient (CLI) | payer MEDICARE, MEDICAID ==
[2019-12-14 11:23] VITALS: BMI 46.1
== END 2020-02-23 09:30 | disposition home or self-care (01) ==
LOC: D.MAMMO 08:30
PROVIDERS: ATTEND Nurse Practitioner Family
DX: Z12.31 Encounter for screening mammogram for malignant neoplasm of breast (principal)

== ENCOUNTER → 2020-03-01 08:51 | Outpatient (CLI) | payer MEDICARE, MEDICAID ==
[2019-12-14 11:23] VITALS: BMI 46.1
--- NOTE | ~2020-03-01 | EEG ---
PATIENT:OLGA ROBINS MEDICAL RECORD: [id number] DATE OF : 50 LOCATION: [facility] ADMISSION DATE: 03/01/20 REFERRING PHYSICIAN: INTERPRETING PHYSICIAN: JULIENNE ROSALES MD DATE OF SERVICE: 03/01/2020 This is an outpatient recording done on 03/01/2020. ORDERED BY: Dr. Rosales. 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 Apparently during that time, the patient was noted to be discoordinated and fell. There is no memory for driving home. MEDICATIONS: Xanax, atenolol, atorvastatin, calcium, Plavix, hydrocodone, levothyroxine. PROCEDURE: EEG done as a routine outpatient recording using the standard 10-20 international electrode system. A 16-channel was used with 17th as EKG. Photic stimulation done as activation procedures. DESCRIPTION: EEG opens with the patient awake, alert with a record displaying a well-organized posterior dominant rhythm of 9 Hz, some moderate amplitude, symmetric and attenuates with eye opening. Occasional frequent bilateral independent single theta slow waves as well as occasional to frequent bilateral independent delta slow waves were seen, sometimes occurring in nonrhythmic runs. Infrequent bilateral independent single sharp waves were observed. No epileptiform change such as spike, polyspike, or spike and wave was seen. Photic stimulation did not yield a photoparoxysmal response. IMPRESSION: Mild to moderately abnormal EEG with diffuse background slowing, this can be seen in the setting of encephalopathy, degenerative change, theta slowing can be seen in the setting of migraine headache. No evidence of seizure disorder, was found in this recording. TRANSINT:[id number] Voice Confirmation ID: [id number] DOCUMENT ID: [id number] JULIENNE ROSALES MD CC: [id number] DICTATION DATE: 03/02/201817 YARD WORKER: 03/03/20 0802 DEP CLI 03/01/20 [place] [id number] [place] [id number]
== END | disposition home or self-care (01) ==
LOC: D.CT 02-18 09:30 → D.CN 02-18 10:00 → D.CT 02-18 11:00 → D.CN 08:51
PROVIDERS: ATTEND Psychiatry & Neurology Neurology
DX: R41.9 Unspecified symptoms and signs involving cognitive functions and awareness (principal)